=== PATIENT | female | born 1985 | race Two or more races ===

== ENCOUNTER 2023-03-01 22:25 | Emergency (ER) | payer MEDICAID ==
[~2023-03-01] VITALS: Ht 165.1 cm; Wt 90.9 kg
[2023-03-01 23:54] LABS: Urine Bacteria FEW /hpf (None Seen); Urine Blood Negative /uL (Negative); Urine Mucus FEW (None Seen); Urine Specific Gravity 1.012 (1.001-1.035); Urine WBC 3 /hpf (0 - 5)
[2023-03-01 23:55] LABS: Basophils # (auto) 0.1 10 ^3/uL (0-0.2); Basophils % (auto) 0.7 % (0.0-2.0); Eosinophils # (auto) 0.3 10 ^3/uL (0-0.8); Eosinophils % (auto) 2.1 % (0.0-7.0); Hemoglobin 10.5 g/dL (12.2-16.2); Lymphocytes % (auto) 27.6 % (10.0-50.0); Mean Corpuscular Volume 70.8 fL (80.0-100.0); Monocytes % (auto) 6.6 % (0.0-12.0); Neutrophils # (auto) 9.2 10 ^3/uL (1.6-8.6); Red Cell Distribution Width 17.4 % (11.8-14.3); White Blood Cell 14.6 10^3/uL (4.4-10.8)
[2023-03-02 00:07] LABS: Albumin 3.2 g/dL (3.4-5.0); Anion Gap 4 (5-15); Blood Urea Nitrogen 9 mg/dL (7-18); Calcium 8.8 mg/dL (8.5-10.1); Carbon Dioxide 26 mmol/L (21-32); Chloride 110 mmol/L (98-107); Glucose 109 mg/dL (74-106); Lipase 138 U/L (73-393); Potassium 4.3 mmol/L (3.5-5.1); Sodium 140 mmol/L (136-145)
[2023-03-02 00:10] LABS: Alanine Aminotransferase 21 U/L (13-56); Alkaline Phosphatase 78 U/L (45-117); Aspartate Aminotransferase 10 U/L (15-37); BUN/Creatinine Ratio 13.6 (10.0-20.0); Bilirubin, Total < 0.1 mg/dL (0.2-1.0); GFR African American 130 mL/min; GFR Non-African American 108 mL/min; Total Protein 8.2 g/dL (6.4-8.2)
[2023-03-02] MEDS ORDERED: cefTRIAXone 1GM/50ML D5W 50 ML IV ONE (08:30)
[2023-03-02] MEDS ORDERED: SODIUM CHLORIDE 0.9% 1,000 ML IV ONE (08:30)
[2023-03-02] MEDS ORDERED: CEPH250C PO (09:19)
[2023-03-02 10:57] VITALS: BP 186/98
== END 2023-03-02 10:58 | disposition home or self-care (01) ==
LOC: ER 22:25
DX: D72.829 Elevated white blood cell count, unspecified (principal); R10.33 Periumbilical pain; Z90.49 Acquired absence of other specified parts of digestive tract; Z98.890 Other specified postprocedural states
CPT/HCPCS: 36415; 74176; 80053; 81001; 81025; 83690; 85025; 96365; 99285; J0696; J7030

== ENCOUNTER 2024-03-04 11:14 | Inpatient (IN) | payer MEDICAID ==
[~2024-03-04] VITALS: Ht 165.1 cm; Wt 110.0 kg
[~2024-03-04 11:14] MED LIST: CEPH250C PO
[2024-03-04 11:49] LABS: Urine Bacteria None Seen /hpf (None Seen)
[2024-03-04 12:28] LABS: Urine Blood Negative /uL (Negative); Urine Clarity Clear (Clear); Urine Color Light-Yellow (Yellow); Urine Mucus FEW (None Seen); Urine Protein, UAD Negative (Negative); Urine Urobilinogen Normal (Negative); Urine WBC 1 /hpf (0 - 5)
[2024-03-04 12:35] LABS: Chloride 107 mmol/L (98-107); Potassium 3.7 mmol/L (3.5-5.1); Sodium 139 mmol/L (136-145)
[2024-03-04 12:36] LABS: Anion Gap 8 (5-15); Calcium 8.9 mg/dL (8.5-10.1); Carbon Dioxide 24 mmol/L (20-30)
[2024-03-04 12:38] LABS: Basophils # (auto) 0.1 10 ^3/uL (0-0.2); Hemoglobin 9.1 g/dL (12.2-16.2); Monocytes # (auto) 0.6 10 ^3/uL (0-1.3); Red Cell Distribution Width 18.4 % (11.8-14.3)
[2024-03-04 12:41] LABS: BUN/Creatinine Ratio 9.5 (10.0-20.0); Basophils % (auto) 0.9 % (0.0-2.0); Blood Urea Nitrogen 6 mg/dL (9-23); Eosinophils # (auto) 0.3 10 ^3/uL (0-0.8); Eosinophils % (auto) 2.2 % (0.0-7.0); Glucose 91 mg/dL (74-106); Hematocrit 29.7 % (36.0-46.0); Lymphocytes % (auto) 26.2 % (10.0-50.0); Mean Corpuscular Hemoglobin 20.7 pg (28.0-32.0); Mean Corpuscular Hgb Conc. 30.8 g/dL (32.0-36.0); Mean Corpuscular Volume 67.3 fL (80.0-100.0); Monocytes % (auto) 5.2 % (0.0-12.0); Neutrophils # (auto) 7.6 10 ^3/uL (1.6-8.6); Neutrophils % (auto) 65.5 % (37.0-80.0); Red Blood Cells 4.41 10^6/uL (4.0-5.20); White Blood Cell 11.6 10^3/uL (4.4-10.8)
[2024-03-04] MEDS: ONDANSETRON ODT 4 MG TAB PO ONE (14:19)
[2024-03-04] MEDS: KETOROLAC TROMETH 60MG/2ML VIAL IM ONE (14:19)
[2024-03-04] MEDS: SODIUM CHLORIDE 0.9% 1,000 ML IV ONE (14:28)
[2024-03-04 15:54] LABS: Triglycerides 95 mg/dL (< 150)
[2024-03-04 15:55] LABS: LDL Cholesterol 56 mg/dL (< 100)
[2024-03-04] MEDS: SODIUM CHLORIDE 0.9% 1,000 ML IV SCH (15:55)
[2024-03-04 15:56] LABS: Cholesterol 101 mg/dL (< 200); HDL Cholesterol 40 mg/dL (40-59)
[2024-03-04 16:35] LABS: % Iron Saturation 6.3 % (15-50)
[2024-03-04 16:47] LABS: Anisocytosis Slight; Hypochromia Marked; Platelet Estimate Increased
[2024-03-04] MEDS: PANTOPRAZOLE 40 MG/10 ML VIAL INJ IV ONE (16:55)
[2024-03-04] MEDS ORDERED: metroNIDAZOLE 500MG/100ML 100 ML IV ONE (17:00)
[2024-03-04 17:40] VITALS: PULSE 77; RESP 18; O2SAT 96
[2024-03-04] MEDS: metroNIDAZOLE 500MG/100ML 100 ML IV SCH (18:29)
[2024-03-04 20:00] VITALS: PULSE 70; RESP 14; O2SAT 100
[2024-03-04] MEDS: KETOROLAC TROMETH 30 MG/ML 1ML VIAL IV PRN (20:00)
[2024-03-04 20:57] VITALS: BP 136/94; PULSE 70; RESP 14; TEMP 98.6; O2SAT 100
[2024-03-04] MEDS: ONDANSETRON HCL 4 MG/2 ML VIAL IV PRN (23:53)
[2024-03-04] MEDS: HYDROcodone-ACET 5/325MG TAB PO PRN (23:58)
[2024-03-05 00:57] VITALS: BP 122/81; PULSE 73; RESP 14; TEMP 98.4; O2SAT 98
[2024-03-05 05:00] VITALS: BP 133/79; PULSE 74; RESP 14; TEMP 98; O2SAT 100
[2024-03-05 07:36] LABS: Basophils # (auto) 0.1 10 ^3/uL (0-0.2); Eosinophils # (auto) 0.3 10 ^3/uL (0-0.8)
[2024-03-05 07:39] LABS: Basophils % (auto) 0.7 % (0.0-2.0); Eosinophils % (auto) 2.4 % (0.0-7.0); Hematocrit 27.9 % (36.0-46.0); Hemoglobin 8.6 g/dL (12.2-16.2); Lymphocytes # (auto) 3.2 10 ^3/uL (0.4-5.4); Lymphocytes % (auto) 29.1 % (10.0-50.0); Mean Corpuscular Hemoglobin 20.6 pg (28.0-32.0); Mean Corpuscular Hgb Conc. 30.8 g/dL (32.0-36.0); Mean Corpuscular Volume 66.7 fL (80.0-100.0); Monocytes # (auto) 0.6 10 ^3/uL (0-1.3); Monocytes % (auto) 5.8 % (0.0-12.0); Neutrophils # (auto) 6.9 10 ^3/uL (1.6-8.6); Nucleated Red Blood Cells % 0.1 %; Red Blood Cells 4.19 10^6/uL (4.0-5.20); Red Cell Distribution Width 18.2 % (11.8-14.3)
[2024-03-05 07:59] LABS: Alanine Aminotransferase 13 U/L (7-40); Albumin 3.4 g/dL (3.2-4.8); Alkaline Phosphatase 68 U/L (46-116); Anion Gap 6 (5-15); Aspartate Aminotransferase 11 U/L (13-40); Calcium 8.7 mg/dL (8.7-10.4); Carbon Dioxide 25 mmol/L (20-30); Chloride 108 mmol/L (98-107); Glucose 90 mg/dL (74-106); Potassium 3.8 mmol/L (3.5-5.1); Sodium 139 mmol/L (136-145)
[2024-03-05 08:00] VITALS: BP 145/89; PULSE 68; RESP 16; TEMP 98.3; O2SAT 98
[2024-03-05 08:00] LABS: BUN/Creatinine Ratio 8.1 (10.0-20.0); Bilirubin, Total 0.3 mg/dL (0.2-1.0); Blood Urea Nitrogen < 5 mg/dL (9-23); Total Protein 6.6 g/dL (5.7-8.2)
[2024-03-05] MEDS: PANTOPRAZOLE 40 MG/10 ML VIAL INJ IV SCH (09:06)
[2024-03-05 12:00] VITALS: BP 141/87; PULSE 71; RESP 16; TEMP 98.3; O2SAT 97
[2024-03-05] MEDS: ACETAMINOPHEN 325 MG TAB PO PRN (12:30)
[2024-03-05] MEDS: LISINOPRIL 20 MG TAB PO SCH (13:10)
[2024-03-05] MEDS: cefTRIAXone 1GM/50ML D5W 50 ML IV SCH (13:10)
[2024-03-05 16:00] VITALS: BP 141/86; PULSE 70; RESP 16; TEMP 98.7; O2SAT 100
[2024-03-05 21:41] VITALS: BP 146/89; PULSE 68; RESP 16; TEMP 98; O2SAT 98
[2024-03-06 04:38] VITALS: BP 135/83; PULSE 72; RESP 20; TEMP 98; O2SAT 98
[2024-03-06 08:22] VITALS: RESP 16; O2SAT 98
[2024-03-06 08:37] VITALS: BP 124/71; PULSE 81; RESP 16; TEMP 98.6; O2SAT 100
[2024-03-06 12:41] VITALS: BP 129/78; PULSE 73; RESP 16; TEMP 98.3; O2SAT 98
[2024-03-06] MEDS ORDERED: LEVO500T91 PO (14:47)
[2024-03-06 15:04] VITALS: BP 124/71; TEMP 36.8
[2024-03-08 12:58] LABS: Folate (Folic Acid) 16.02 ng/mL (>5.38)
== END 2024-03-06 16:20 | disposition home or self-care (01) | DRG 241 ==
LOC: ER 11:14 → OVERFLOW 15:09 → WEST WING 17:08
PROVIDERS: ADMIT Nurse Practitioner Family; ATTEND Internal Medicine
DX: K29.70 Gastritis, unspecified, without bleeding (principal); K76.0 Fatty (change of) liver, not elsewhere classified; D64.9 Anemia, unspecified; E66.01 Morbid (severe) obesity due to excess calories; Z90.49 Acquired absence of other specified parts of digestive tract; Z68.41 Body mass index [BMI] 40.0-44.9, adult
CPT/HCPCS: 36415; 74176; 80048; 80053; 80061; 81001; 81025; 82607; 82746; 83540; 83550; 84443; 85025; 87040; 96361; 96372; 96374; C9113; G0378; J1885; J2405; J3490; Q0162